=== PATIENT | female | born 1985 | race Caucasian/White ===

== ENCOUNTER 2017-09-07 21:19 | Emergency (ER) | payer BC ==
[~2017-09-07] VITALS: Ht 165.1 cm; Wt 53.5 kg
[2017-09-07] MEDS ORDERED: RT-ALBUTEROL/IPRATROPIUM 3 ML (DUONEB) VIAL INH ONE ×2 (21:45)
[2017-09-07] MEDS ORDERED: predniSONE 10 MG TAB PO ONE (22:45)
--- NOTE | 2017-09-07 22:46 | ED Respiratory ---
General Chief Complaint: Respiratory Problems Stated Complaint: SOB Nursing Triage Note: PT C/O DIFFICULTY BREATHING THROUGH OUT THE DAY TODAY. SHE STATES WORSENING TONIGHT. PT STATES SHE IS HAVING A HARD TIME CATCHING HER BREATH. SHE HAS AN ALBUTEROL INHALER, BUT IS OUT. Source: patient History of Present Illness Date Seen by Provider: Sep 07, 2017 Time Seen by Provider: 21:43 Initial Comments C/O DIFFICULTY BREATHING, PROGRESSIVELY GETTING WORSE TODAY PT STATES SHE HAS NOT BEEN FORMALLY DX WITH ASTHMA, AND HAS NO TESTS OF ANY KIND FOR RESPIRATORY PROBLEMS, BUT HER DRPradeep PRESCRIBED AN ALBUTEROL INHALER OVER 1 1/2 YEARS AGO--NO SPACER PT STATES SHE USED TO USE IT 2-3 TIMES A WEEK, BUT FOR THE LAST 8-9 MONTHS, SHE HAS HAD TO USE IT 2-4 TIMES A DAY, EVERY DAY. STATES SYMPTOMS ARE MUCH WORSE AT NIGHT, AND OFTEN WAKES UP DURING THE NIGHT AND CAN'T BREATHE, AND HAS TO USE INHALER--OCCURS 1-2 TIMES A NIGHT, EVERY NIGHT. SYMPTOMS ALSO WORSE WITH EXERCISE, AND WITH CLEANING THE HOUSE. PT WORKS AT HOME AND NO NEW EXPOSURES IN HOME HAS BEEN OUT OF HER INHALER FOR 1 1/2 WEEKS AND SYMPTOMS HAVE GOTTEN MUCH WORSE SINCE THEN HAS MILD OCCASIONAL DRY COUGH NO FEVER HAS MILD NASAL CONGESTION TODAY, BUT NO DRAINAGE NO OTHER SYMPTOMS PCP: HUGO REESE Allergies and Home Medications Allergies Coded Allergies: No Known Drug Allergies (Verified Allergy, Unknown, 01/25/09) Home Medications Albuterol Sulfate 1 Puff Puff, 2 PUFF IH Q4H, #1 Prescribed by: ENRIQUE SNOWDEN on 09/07/172246 Budesonide 90 Mcg Aer.pow.ba, 90 MCG IH BID, #1 Prescribed by: ENRIQUE SONWDEN on 09/07/172246 Fluticasone Propionate 9.9 Ml [place].susp, 2 SPRAYS NS BID, #1 Prescribed by: ENRIQUE SNOWDEN on 09/07/172246 Methylprednisolone 4 Mg Tab.ds.pk, 4 MG PO UD, #1 Prescribed by: ENRIQUE SNOWDEN on 09/07/172246 Constitutional: no symptoms reported EENTM: nose congestion Respiratory: see HPI, cough, No phlegm, short of breath Cardiovascular: no symptoms reported Gastrointestinal: no symptoms reported Genitourinary: no symptoms reported Musculoskeletal: no symptoms reported Skin: no symptoms reported Psychiatric/Neurological: No Symptoms Reported Hematologic/Lymphatic: No Symptoms Reported Immunological/Allergic: no symptoms reported Past Jyogari-Otpirz-Yzttyv Hx Patient Social History Alcohol Use: Occasionally Uses Recreational Drug Use: No Smoking Status: Never a Smoker 2nd Hand Smoke Exposure: No Recent Foreign Travel: No Contact w/Someone Who Travel: No Recent Infectious Disease Expo: No Recent Hopitalizations: No Seasonal Allergies Seasonal Allergies: No Surgeries History of Surgeries: Yes Surgeries: Adenoidectomy, Breast, Tonsillectomy, Tubal Ligation Respiratory History of Respiratory Disorde: No Cardiovascular History of Cardiac Disorders: No Neurological History of Neurological Disord: No Reproductive System Hx Reproductive Disorders: No Sexually Transmitted Disease: No Genitourinary History of Genitourinary Disor: No Gastrointestinal History of Gastrointestinal Di: No Musculoskeletal History of Musculoskeletal Dis: No Endocrine History of Endocrine Disorders: No HEENT History of HEENT Disorders: No Cancer History of Cancer: No Psychosocial History of Psychiatric Problem: No Integumentary History of Skin or Integumenta: No Blood Transfusions History of Blood Disorders: No Physical Exam Vital Signs Vital Sign - Last 12Hours 09/07/17 21:31 Temp 98.4 Pulse 89 Resp 25 B/P (MAP) 130/84 (99) Pulse Ox 95 O2 Delivery Room Air Capillary Refill : Less Than 3 Seconds General Appearance: WD/WN, thin, other (SLIGHTLY DYSPNEIC) HEENT: PERRL/EOMI, TMs normal, pharynx normal, other (NASAL MUCOSAL EDEMA) Neck: non-tender, full range of motion, supple, normal inspection Respiratory: no respiratory distress, no accessory muscle use, decreased breath sounds (IN ALL LUNG TATE), wheezing (FAINT EXPIRATORY WHEEZING IN UPPER LOBES), other (MILDLY DYSPNEIC) Cardiovascular: regular rate, rhythm, no edema, no murmur Gastrointestinal: soft Extremities: normal inspection Neurologic/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, no motor/sensory deficits, alert, normal mood/affect, oriented x 3 Skin: normal color, warm/dry Progress/Results/Core Measures Suspected Sepsis Recent Fever Within 48 Hours: No Infection Criteria Present: None New/Unexplained Altered Menta: No Sepsis Screen: No Definite Risk Sepsis Diagnosis: SIRS Temperature:98.4 Pulse: 89 Respiratory Rate: 25 Blood Pressure 130 /84 Mean: 99 Results/Orders Micro Results Microbiology 09/07/17 Influenza Types A,B Antigen (KEILA) - Final, Complete My Orders Orders - ENRIQUE SNOWDEN DO O2 (09/07/17 21:43) Monitor-Rhythm Ecg Trace Only (09/07/17 21:43) Influenza A And B Antigens (09/07/17 21:43) Chest Pa/Lat (2 View) (09/07/17 21:43) Albuterol/Ipra Inhalation Soln (Duoneb I (09/07/17 21:45) Rt Request For Service (09/07/17 21:43) Svn Sm Volume Nebulizer Rt-Rfs (09/07/17 21:43) Albuterol/Ipra Inhalation Soln (Duoneb I (09/07/17 21:45) Svn Sm Volume Nebulizer Rt-Rfs (09/07/17 21:44) Prednisone Tablet (Deltasone Tablet) (09/07/17 22:45) Medications Given in ED Current Medications Medications Dose Ordered Sig/Samia Route Start Time Stop Time Status Last Admin Dose Admin Albuterol/ Ipratropium 3 ml ONCE ONCE INH 09/07/17 21:45 09/07/17 21:46 DC 09/07/17 21:49 3 ML Vital Signs/I&O Vital Sign - Last 12Hours 09/07/17 09/07/17 21:31 21:50 Temp 98.4 Pulse 89 Resp 25 B/P (MAP) 130/84 (99) Pulse Ox 95 94 O2 Delivery Room Air Room Air Capillary Refill : Less Than 3 Seconds Blood Pressure Mean: 99 Progress Note : Progress Note GIVEN NEB TREATMENT, INCREASED AERATION, NO WHEEZING AND STATES SHE FEELS MUCH BETTER O2 SATS 95% ON ROOM AIR AT DISMISSAL Departure Impression Impression: Primary Impression: Recurrent bronchospasm Additional Impressions: ASTHMA -LIKE SYMPTOMS Reactive airway disease Disposition: 01 HOME, SELF-CARE Condition: Improved Departure-Patient Inst. Referrals: NICOLE BEST MAXWELL MD (PCP/Family) Primary Care Physician Patient Instructions: Asthma Action Plan, Asthma, Adult (DC), Avoiding Asthma Triggers, Rescue vs Controller Inhalers Add. Discharge Instructions: INCREASE HUMIDITY IN HOME LOTS OF CLEAR LIQUIDS AVOID PERFUMES, ANY AEROSOLS, FUMES, ETC. FOLLOW UP WITH DR. BEST FOR PULMONOLOGY EVALUATION--CALL IN AM FOR APPOINTMENT KEEP APPOINTMENT WITH DR. KAMINSKI THIS WEEK FOR FURTHER CARE All discharge instructions reviewed with patient and/or family. Voiced understanding. Scripts Budesonide (Pulmicort Flexhaler) 90 Mcg Aer.pow.ba 90 MCG IH BID, #1 GM Prov: ENRIQUE SNOWDEN DO 09/07/17 Methylprednisolone (Medrol) 4 Mg Tab.ds.pk 4 MG PO UD, #1 PKG Prov: ENRIQUE SNOWDEN DO 09/07/17 Fluticasone Propionate (Flonase Allergy Relief) 9.9 Ml [place].susp 2 SPRAYS NS BID, #1 SPRAY Prov: ENRIQUE SNOWDEN DO 09/07/17 Albuterol Sulfate (PROAIR HFA) 1 Puff Puff 2 PUFF IH Q4H for BREATHING, #1 GM Prov: ENRIQUE SNOWDEN DO 09/07/17 ENRIQUE SNOWDEN DO Sep 07, 2017 22:46
[2017-09-07] MEDS ORDERED: METH4TAB PO (22:47)
[2017-09-07] MEDS ORDERED: BUDE90AE2 IH (22:47)
[2017-09-07] MEDS ORDERED: RT-ALBUINH IH (22:47)
[2017-09-07] MEDS ORDERED: FLUT9.9S NS (22:47)
[2017-09-07 23:00] VITALS: BP 130/84
--- NOTE | 2017-09-08 07:32 | Diagnostic Imaging Report ---
CHEST PA/LAT (2 VIEW) Indication: Shortness of air Comparison: None available. Findings: No focal pneumonic consolidation, pleural effusion or pneumothorax. Normal heart size and pulmonary vasculature. Impression: No acute cardiopulmonary process. Dictated by: Dictated on workstation # [id number]
== END 2017-09-07 23:00 | disposition home or self-care (01) ==
LOC: EDUNIT# 21:19 → ER 21:22
DX: J98.01 Acute bronchospasm (principal); J45.909 Unspecified asthma, uncomplicated; Z90.89 Acquired absence of other organs; Z98.51 Tubal ligation status
CPT/HCPCS: 71046; 87804; 93041; 94640

== ENCOUNTER → 2017-09-11 | Outpatient (CLI) | payer BC ==
[~2017-09-11] MED LIST: BUDE90AE2 IH; FLUT9.9S NS; METH4TAB PO; RT-ALBUINH IH
== END ==
LOC: LAB 09:41
PROVIDERS: ATTEND Nurse Practitioner Family
DX: J45.909 Unspecified asthma, uncomplicated (principal); R06.00 Dyspnea, unspecified
CPT/HCPCS: 36415; 82785; 86003

== ENCOUNTER → 2017-10-03 | Outpatient (CLI) | payer BC ==
[~2017-10-03] MED LIST changes: +RT-ALBUTEROL SULF 2.5 MG/3 ML PRE-MIX VIAL INH ONE
== END ==
LOC: RT 09:39
PROVIDERS: ATTEND Nurse Practitioner Family
DX: J45.909 Unspecified asthma, uncomplicated (principal); R06.00 Dyspnea, unspecified
CPT/HCPCS: 94060; 94726; 94729

== ENCOUNTER → 2017-10-23 | Outpatient (CLI) | payer BC ==
[~2017-10-23] MED LIST changes: -RT-ALBUTEROL SULF 2.5 MG/3 ML PRE-MIX VIAL INH ONE
[2017-10-23 10:39] LABS: BASOPHILS % (AUTO) 1 % (0-10); EOSINOPHILS # (AUTO) 0.5 10^3/uL (0.0-0.3); EOSINOPHILS % (AUTO) 8 % (0-10); HEMATOCRIT 40 % (35-52); HEMOGLOBIN 13.7 G/DL (11.5-16.0); LYMPHOCYTES # (AUTO) 1.7 X 10^3 (1.0-4.0); LYMPHOCYTES % (AUTO) 25 % (12-44); MEAN CORPUSCULAR HEMOGLOBIN 30 PG (25-34); MEAN CORPUSCULAR HGB CONC 34 G/DL (32-36); MEAN CORPUSCULAR VOLUME 87 FL (80-99); MEAN PLATELET VOLUME 11.2 FL (7.4-10.4); MONOCYTES # (AUTO) 0.6 X 10^3 (0.0-1.0); MONOCYTES % (AUTO) 9 % (0-12); NEUTROPHILS # (AUTO) 3.8 X 10^3 (1.8-7.8); NEUTROPHILS % (AUTO) 57 % (42-75); PLATELET COUNT 193 10^3/uL (130-400); RED BLOOD COUNT 4.65 10^6/uL (4.35-5.85); RED CELL DISTRIBUTION WIDTH 12.7 % (10.0-14.5); WHITE BLOOD COUNT 6.6 10^3/uL (4.3-11.0)
== END ==
LOC: LAB 10:28
PROVIDERS: ATTEND Internal Medicine Critical Care Medicine
DX: J45.909 Unspecified asthma, uncomplicated (principal)
CPT/HCPCS: 36415; 85025

== ENCOUNTER 2018-07-06 13:26 | Outpatient (RCR) | payer BC ==
[2018-05-11 13:55] VITALS: BP 107/77
[~2018-07-06] VITALS: Ht 165.1 cm; Wt 53.5 kg
[2018-07-06 13:26] VITALS: BP 122/69
[~2018-07-06 13:26] MED LIST changes: +BENRALIZUMAB 30 MG/ML (FASENRA) SYRINGE SQ ONE
[2018-07-06] MEDS ORDERED: BENRALIZUMAB 30 MG/ML (FASENRA) SYRINGE SQ ONE (14:00)
== END 2018-08-09 | disposition home or self-care (01) ==
LOC: SDC 13:26
PROVIDERS: ATTEND Internal Medicine Critical Care Medicine
DX: J45.51 Severe persistent asthma with (acute) exacerbation (principal); J40 Bronchitis, not specified as acute or chronic; J30.2 Other seasonal allergic rhinitis
CPT/HCPCS: 96372

== ENCOUNTER → 2018-08-31 | Outpatient (CLI) | payer BC ==
[~2018-08-31] VITALS: Ht 165.1 cm; Wt 53.5 kg
[2018-08-31 13:36] VITALS: BP 110/72
== END ==
LOC: SDC 12:52 → EDSTATUS 13:00
PROVIDERS: ATTEND Internal Medicine Critical Care Medicine
DX: J45.51 Severe persistent asthma with (acute) exacerbation (principal); J40 Bronchitis, not specified as acute or chronic; J30.2 Other seasonal allergic rhinitis; Z79.899 Other long term (current) drug therapy
CPT/HCPCS: 96372

== ENCOUNTER → 2018-10-26 | Outpatient (CLI) | payer BC ==
[~2018-10-26] VITALS: Ht 165.1 cm; Wt 53.5 kg
[2018-10-26 13:32] VITALS: BP 108/66
== END ==
LOC: SDC 13:02
PROVIDERS: ATTEND Internal Medicine Critical Care Medicine
DX: J45.51 Severe persistent asthma with (acute) exacerbation (principal); J40 Bronchitis, not specified as acute or chronic; J30.2 Other seasonal allergic rhinitis
CPT/HCPCS: 96372

== ENCOUNTER → 2019-01-13 | Outpatient (CLI) | payer BC ==
[~2019-01-13] VITALS: Ht 165.1 cm; Wt 53.5 kg
[2019-01-13 15:31] VITALS: BP 124/75
== END ==
LOC: SDC 14:56
PROVIDERS: ATTEND Internal Medicine Critical Care Medicine
DX: J45.51 Severe persistent asthma with (acute) exacerbation (principal); J40 Bronchitis, not specified as acute or chronic; J30.2 Other seasonal allergic rhinitis
CPT/HCPCS: 96372

== ENCOUNTER 2019-01-31 21:08 | Emergency (ER) | payer BC | END 2019-01-31 22:35 | disposition home or self-care (01) | LOC: ER 21:08 ==

== ENCOUNTER 2019-04-23 12:18 | Outpatient (RCR) | payer BC ==
[~2019-04-23 12:18] MED LIST changes: +ALBU2.5V4 INH; -BENRALIZUMAB 30 MG/ML (FASENRA) SYRINGE SQ ONE; +PRD20T PO
[2019-04-23] MEDS ORDERED: BENRALIZUMAB 30 MG/ML (FASENRA) SYRINGE SQ ONE (12:30)
[2019-04-23 13:00] VITALS: BP 120/77
== END 2019-04-23 13:00 | disposition home or self-care (01) ==
LOC: SDC 12:18
PROVIDERS: ATTEND Internal Medicine Critical Care Medicine
DX: J45.51 Severe persistent asthma with (acute) exacerbation (principal); J40 Bronchitis, not specified as acute or chronic; J30.2 Other seasonal allergic rhinitis
CPT/HCPCS: 96372

== ENCOUNTER 2019-06-28 13:01 | Outpatient (RCR) | payer BC ==
[~2019-06-28] VITALS: Ht 160 cm; Wt 59.0 kg
[2019-06-28] MEDS ORDERED: BENRALIZUMAB 30 MG/ML (FASENRA) SYRINGE SQ ONE (13:09)
[2019-06-28 13:35] VITALS: BP 119/73
== END 2019-09-26 | disposition home or self-care (01) ==
LOC: SDC 13:01
PROVIDERS: ATTEND Internal Medicine Critical Care Medicine
DX: J45.51 Severe persistent asthma with (acute) exacerbation (principal); J40 Bronchitis, not specified as acute or chronic
CPT/HCPCS: 96372

== ENCOUNTER → 2020-08-10 | Outpatient (CLI) | payer BC ==
[2020-08-10 10:37] LABS: BASOPHILS # (AUTO) 0.1 10^3/uL (0.0-0.1); BASOPHILS % (AUTO) 1 % (0-10); EOSINOPHILS # (AUTO) 1.1 10^3/uL (0.0-0.3); EOSINOPHILS % (AUTO) 17 % (0-10); HEMATOCRIT 41 % (35-52); HEMOGLOBIN 13.6 g/dL (11.5-16.0); LYMPHOCYTES # (AUTO) 1.4 10^3/uL (1.0-4.0); LYMPHOCYTES % (AUTO) 21 % (12-44); MEAN CORPUSCULAR HEMOGLOBIN 29 pg (25-34); MEAN CORPUSCULAR HGB CONC 33 g/dL (32-36); MEAN CORPUSCULAR VOLUME 87 fL (80-99); MEAN PLATELET VOLUME 9.8 fL (9.0-12.2); MONOCYTES # (AUTO) 0.5 10^3/uL (0.0-1.0); MONOCYTES % (AUTO) 8 % (0-12); NEUTROPHILS # (AUTO) 3.5 10^3/uL (1.8-7.8); NEUTROPHILS % (AUTO) 54 % (42-75); PLATELET COUNT 267 10^3/uL (130-400); WHITE BLOOD COUNT 6.5 10^3/uL (4.3-11.0)
[2020-08-10 11:00] LABS: BAND NEUTROPHILS 0 %; BASOPHILS % (MANUAL) 0 %; EOSINOPHILS % (MANUAL) 16 %; LYMPHOCYTES % (MANUAL) 28 %; MONOCYTES % (MANUAL) 6 %; NEUTROPHILS % (MANUAL) 50 %; RBC MORPH NORMAL
--- NOTE | 2020-08-10 12:47 | Diagnostic Imaging Report ---
INDICATION: EXACERBATION OF ASTHMA COMPARISON: 01/31/2019 FINDINGS: Frontal and lateral views of the chest demonstrate normal heart size and pulmonary vascularity. The lungs are clear. There are no signs of infiltrate, pleural effusions or pneumothoraces. The visualized osseous structures show no acute abnormalities. IMPRESSION: 1. No acute process. No signs of infiltrates, effusions or pneumothoraces. Dictated by: Dictated on workstation # [id number]
== END ==
LOC: RAD 10:06
PROVIDERS: ATTEND Nurse Practitioner Family
DX: J45.901 Unspecified asthma with (acute) exacerbation (principal)
CPT/HCPCS: 36415; 71046; 82785; 85007; 85027